=== PATIENT | male | born 2000 | race Caucasian/White ===

== ENCOUNTER → 2022-02-27 00:05 | Outpatient (CLI) | payer OTHER, SELFPAY ==
[2022-02-27 11:52] LABS: SARS-CoV-2 RNA PCR Negative
== END ==
PROVIDERS: PCP Family Medicine Adolescent Medicine
DX: R68.89 Other general symptoms and signs (principal); Z20.822 Contact with and (suspected) exposure to COVID-19
CPT/HCPCS: C9803; U0003; U0005

== ENCOUNTER → 2022-04-23 01:15 | Outpatient (CLI) | payer OTHER, SELFPAY ==
[2022-04-23 11:00] LABS: SARS-CoV-2 RNA PCR Negative
== END ==
DX: R68.89 Other general symptoms and signs (principal); Z20.822 Contact with and (suspected) exposure to COVID-19
CPT/HCPCS: C9803; U0003; U0005

== ENCOUNTER 2022-07-13 09:39 | Outpatient (CLI) | payer OTHER, SELFPAY ==
--- NOTE | ~2022-07-13 | XR_ITS ---
EXAMINATION: XR hip LT min 2V INDICATION: Left hip pain TECHNIQUE: Two views of the left hip are obtained. COMPARISON: 01/15/2015 FINDINGS: Bone alignment is normal. There is no fracture. The soft tissues are unremarkable. IMPRESSION: 1. No acute osseous abnormality. Reviewed, dictated and finalized at location B. 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
--- NOTE | ~2022-07-13 | XR_ITS ---
EXAMINATION: XR lumbar spine 2-3V DATE: 07/13/2022 10:00 INDICATION: Low back pain and right foot numbness TECHNIQUE: Anteroposterior and lateral views of the lumbar spine, and cone-down lateral view of the l umbosacral junction were obtained. COMPARISON: None. FINDINGS: There is no fracture, dislocation, or subluxation. The vertebral body heights, alignment, a nd intervertebral disc spaces are normal. The paravertebral soft tissues are unremarkable. IMPRESSION: 1. No acute osseous abnormality. 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
== END 2022-07-13 09:40 | disposition home or self-care (01) ==
PROVIDERS: PCP Family Medicine Adolescent Medicine; Visit Provider Family Medicine Adolescent Medicine
DX: R20.2 Paresthesia of skin (principal); M25.552 Pain in left hip
CPT/HCPCS: 72100; 73502

== ENCOUNTER 2023-07-05 16:21 | Emergency (ER) | payer OTHER, SELFPAY ==
--- NOTE | ~2023-07-05 | XR_ITS ---
XR hand RT min 3V, XR wrist RT min 3V 07/05/2023 16:55 INDICATION: Hand pain after recent injury PROCEDURE: 3 views right hand and 4 views right wrist COMPARISON: No prior studies for comparison. FINDINGS: Fracture, dislocation or subluxation is not identified. The soft tissues appear within norm al limits. No foreign bodies are identified. IMPRESSION: 1: NO ACUTE BONE OR JOINT ABNORMALITY IDENTIFIED. Reviewed, dictated and finalized at location A. IMPRESSION: 1: NO ACUTE BONE OR JOINT ABNORMALITY IDENTIFIED.
[2023-07-05 16:44] VITALS: BP 121/54; PULSE 98; RESP 16; TEMP 36.9; O2SAT 100
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
== END 2023-07-05 17:40 | disposition home or self-care (01) ==
PROVIDERS: Emergency Provider Registered Nurse; PCP Family Medicine Adolescent Medicine
DX: S63.501A Unspecified sprain of right wrist, initial encounter (principal); S66.911A Strain of unspecified muscle, fascia and tendon at wrist and hand level, right hand, initial encounter; X50.9XXA Other and unspecified overexertion or strenuous movements or postures, initial encounter; M79.641 Pain in right hand
CPT/HCPCS: 73110; 73130; 99213; G0463

== ENCOUNTER 2023-12-25 10:11 | Emergency (ER) | payer OTHER, SELFPAY ==
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
--- NOTE | ~2023-12-25 | XR_ITS ---
XR knee LT 3V 12/25/2023 10:55 Indication: Left knee pain Procedure: 3 views left knee Comparison: No prior studies for comparison. Findings: There is a depressed lateral tibial plateau fracture with involvement of the lateral tibial condyle. Large lipohemarthrosis. No other fracture. Impression: 1: Depressed lateral tibial plateau fracture with large lipohemarthrosis. Reviewed, dictated and finalized at location A. Impression: 1: Depressed lateral tibial plateau fracture with large lipohemarthrosis.
[2023-12-25 10:26] VITALS: BP 124/72; PULSE 92; RESP 16; O2SAT 99
[2023-12-25] MEDS: oxyCODONE/ACETAMINOPHEN (*CRX) 10-325 MG TABLET 1 TAB PO (11:22)
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
== END 2023-12-25 11:50 | disposition home or self-care (01) ==
PROVIDERS: Emergency Provider Preventive Medicine Aerospace Medicine; PCP Family Medicine Adolescent Medicine
DX: S82.142A Displaced bicondylar fracture of left tibia, initial encounter for closed fracture (principal); S99.912A Unspecified injury of left ankle, initial encounter; S79.912A Unspecified injury of left hip, initial encounter; V86.56XA Driver of dirt bike or motor/cross bike injured in nontraffic accident, initial encounter
CPT/HCPCS: 72170; 73562; 73610; 73630; 99284; A9270

== ENCOUNTER 2024-11-28 10:35 | Emergency (ER) | payer BC, SELFPAY ==
[2024-11-28 10:38] VITALS: BP 132/58; PULSE 74; RESP 16; TEMP 36.7; O2SAT 100
--- NOTE | 2024-11-28 10:51 | ECG_ITS ---
Test Date: 2024-11-28 11:19:34 Measurements Intervals [place] Rate: 52 P: 43 MN: 169 QRS: 91 QRSD: 84 T: 51 QT: 361 QTc: 336 Interpretive Statements SINUS BRADYCARDIA BORDERLINE RIGHT AXIS DEVIATION [QRS AXIS > 90] POSSIBLE RIGHT VENTRICULAR CONDUCTION DELAY [RSR (QR) IN V1/V2] No previous ECG available for comparison Electronically Signed On 11-28-2024 13:03:25 CDT by Lizeth Morley M.D.
[2024-11-28 11:01] VITALS: BP 112/67; BP 124/69; PULSE 63; PULSE 77
[2024-11-28 11:02] VITALS: BP 116/72; PULSE 76
[2024-11-28] MEDS: LACTATED RINGERS 1,000 ML 999 ML IV CONT (11:08)
--- NOTE | 2024-11-28 11:12 | ED_ITS ---
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 [place] lightheaded and dizzy with low bit of nauseousness. [place] like he was going to pass out but did not actually have a syncopal event. No chest pain or discomfort. No chest pressure. No neck pain or headache. No vision changes, abdominal pain or back pain. Was otherwise feeling well previous to this. Presents to the ER and states that he feels improved but not back to his current baseline. No history of heart issues or diabetes. Did not skip breakfast this morning. No injury or trauma. Related Data Allergies Allergy/AdvReac Type Severity Reaction Status Date / Time No Known Allergies Allergy Verified 11/28/24 10:36 Review of Systems 2 Review of Systems: As reviewed above in HPI [facility] Past Medical History Medical History No significant past medical history Surgical History Surgical History No significant past surgical history Social History Social History Smoking status: Never smoker Alcohol intake: never Living arrangements: with family Gender identity (if verbalized by the patient): Male Exam 2 Narrative: GENERAL: [Well-appearing, well-nourished, and in no acute distress.] HEAD: [Normocephalic, atraumatic.] EYES: [PERRLA and EOMI.] ENT: Nares clear, no rhinorrhea or epistaxis. Mucous membranes moist. NECK: Supple. CHEST: [Clear to auscultation. No respiratory distress.] HEART: [Regular rate and rhythm]. No murmur heard. [Normal peripheral pulses.] ABDOMEN: [Soft, nondistended], [nontender], [No rigidity or guarding] EXTREMITIES: Normal range of motion. [No edema.] SKIN: Warm, dry, no rash. NEURO: [No focal deficits]. Alert and oriented [x3.] PSYCH: [Normal mood and affect.] Course Vital Signs Vital signs: Vital Signs Temperature 36.7 C 11/28/24 10:38 Pulse Rate 74 11/28/24 10:38 Respiratory Rate 16 11/28/24 10:38 Blood Pressure 132/58 L 11/28/24 10:38 Pulse Oximetry 100 11/28/24 10:38 Oxygen Delivery Room Air 11/28/24 10:38 Temperature 36.7 C 11/28/24 10:38 Pulse Rate 76 11/28/24 11:02 Respiratory Rate 16 11/28/24 10:38 Blood Pressure 116/72 11/28/24 11:02 Pulse Oximetry 100 11/28/24 10:38 Oxygen Delivery Room Air 11/28/24 10:38 MDM - Syncope MDM Narrative Medical decision making narrative: 24-year-old otherwise healthy male presenting to the emergency department after a near syncopal event while at work. He felt a prodrome of nauseousness, lightheadedness with dizziness sensations that was short-lived. He did not actually have a full syncopal event. No chest pain shortness a breath. No nausea or vomiting. States he feels better presently without any intervention. Has normal vital signs, no tachycardia, fever or hypoxia. No significant blood pressure concerns. Strong symmetric pulses, clear breath sounds, no auscultated murmurs. He otherwise appears well. Likely vasovagal versus orthostatic syncope as he does have positive orthostatic vital signs here in the ED. Possible component of dehydration or less likely anemia or electrolyte disturbances. Low suspicion cardiac dysrhythmia or cardiac in origin. Laboratory studies were obtained including CBC, CMP. EKG obtained, he was given a lactated Ringer bolus and placed on surveillance system monitor and observed. Patient did have some positive orthostatic vitals and improved with fluids. His electrolytes are normal, normal renal and hepatic function panel. No leukocytosis or anemia. EKG is unremarkable for any signs of ectopy or arrhythmia. He is safe for discharge home at this time encouraged to follow-up with his regular doctor as needed and maintain oral hydration. Patient given return precautions and a work note. Medical Records Attestation: I reviewed the patient's medical records. Lab Data Attestation: I reviewed the patient's lab results. 11/28/24 11:09 11/28/24 11:09 Labs: Lab Results 11/28/24 Range/Units 11:09 WBC 5.8 (4.5-10.0) K/mm3 RBC 4.87 (4.6-6.20) M/mm3 Hgb 14.9 (14.0-18.0) g/dL Hct 42.5 (42.0-52.0) % MCV 87.3 (80-100) fl MCH 30.6 (26-34) pg MCHC 35.1 (32-36) g/dl RDW 11.9 (11.5-14.5) % Plt Count 186 (150-375) k/mm3 MPV 8.9 (7.4-10.4) fl Immature Gran % (Auto) 0.3 (0-0.5) % Neut % (Auto) 61.6 (45.5-73.1) % Lymph % (Auto) 28.0 (18.3-44.2) % Dillon % (Auto) 7.4 (2.6-8.5) % Eos % (Auto) 1.7 (0-4.4) % Baso % (Auto) 1.0 (0.2-1.2) % Lymph # (Auto) 1.63 (0.9-3.2) K/mm3 Dillon # (Auto) 0.4 (0.1-0.6) K/mm3 Eos # (Auto) 0.1 (0-0.3) K/mm3 Baso # (Auto) 0.1 (0.0-0.1) K/mm3 Abs Immat Gran (auto) 0.02 (0.00-0.031) K/mm3 Absolute Neuts (auto) 3.6 (1.3-6.7) K/mm3 Absolute Nucleated RBC 0.000 (0.0-0.012) K/mm3 Nucleated RBC % 0.0 (0.0-0.2) % Sodium 140 (137-145) mmol/L Potassium 4.1 (3.4-5.0) mmol/L Chloride 104 (98-107) mmol/L Carbon Dioxide 26 (22-30) mmol/L Anion Gap 10 (4-12) mmol/L BUN 14 (9-20) mg/dL Creatinine 0.93 (0.7-1.3) mg/dL Estim Creat Clear Calc 109 ml/min Estimated GFR > 60 (59 - ) Glucose 90 (65-110) mg/dL Calcium 9.2 (8.4-10.2) mg/dL Total Bilirubin 0.7 (0.2-1.3) mg/dL AST 38 (17-59) U/L ALT 42 (6-50) U/L Alkaline Phosphatase 66 (38-126) U/L Total Protein 8.0 (6.3-8.2) g/dL Albumin 4.7 (3.5-5.1) g/dL Discharge Plan Discharge Clinical Impression: Pre-syncope, Postural dizziness with presyncope Patient Disposition: Home, Self-Care Condition: Stable Instructions: Antibiotic Form, Near Syncope (ED) Additional Instructions: Your laboratory studies and workup here very reassuring, maintain good oral hydration. Return with any new or worsening concerns at any time. Patient Language: Pashto Prescriptions: No Action oxycodone-acetaminophen [Endocet] 5-325 mg tablet 1 tablet PO Q8H PRN (Reason: pain) Qty: 15 0RF ondansetron 8 mg tablet,disintegrating 8 mg PO Q8H PRN (Reason: nausea and vomiting) Qty: 12 0RF Follow-up/Referrals: Raheem Dos Santos MD [Primary Care Provider] - Stand Alone Forms: Work/School Release IP Time of Disposition: 12:21
[2024-11-28 11:14] LABS: Basophils Absolute Auto 0.1 K/mm3 (0.0-0.1); Eosinophils Absolute Auto 0.1 K/mm3 (0-0.3); Eosinophils Percent Auto 1.7 % (0-4.4); Hematocrit 42.5 % (42.0-52.0); Hemoglobin 14.9 g/dL (14.0-18.0); Immature Granulocyte Absolute 0.02 K/mm3 (0.00-0.031); Immature Granulocyte Percent A 0.3 % (0-0.5); Lymphocytes Absolute Auto 1.63 K/mm3 (0.9-3.2); Mean Corpuscular HGB Conc 35.1 g/dl (32-36); Mean Corpuscular Hemoglobin 30.6 pg (26-34); Mean Corpuscular Volume 87.3 fl (80-100); Mean Platelet Volume 8.9 fl (7.4-10.4); Monocytes Absolute Auto 0.4 K/mm3 (0.1-0.6); Monocytes Percent Auto 7.4 % (2.6-8.5); Neutrophils Absolute Auto 3.6 K/mm3 (1.3-6.7); Neutrophils Percent Auto 61.6 % (45.5-73.1); Platelet Count Result 186 k/mm3 (150-375); Red Blood Count 4.87 M/mm3 (4.6-6.20); Red Cell Distribution Width 11.9 % (11.5-14.5); White Blood Count 5.8 K/mm3 (4.5-10.0)
[2024-11-28 11:24] LABS: Alanine Aminotransferase 42 U/L (6-50); Albumin Level 4.7 g/dL (3.5-5.1); Alkaline Phosphatase 66 U/L (38-126); Anion Gap 10 mmol/L (4-12); Aspartate Amino Transferase 38 U/L (17-59); Bilirubin,Total 0.7 mg/dL (0.2-1.3); Blood Urea Nitrogen 14 mg/dL (9-20); Calcium 9.2 mg/dL (8.4-10.2); Carbon Dioxide 26 mmol/L (22-30); Chloride 104 mmol/L (98-107); Estimated CRCL calculation 109 ml/min; Estimated Glomerular Filt Rate > 60; Glucose 90 mg/dL (65-110); Potassium 4.1 mmol/L (3.4-5.0); Sodium 140 mmol/L (137-145)
--- OUTSIDE RECORDS SUMMARY | 2024-11-28 11:58 | XMS_ITS | Referral Summary ---
Author Organization [facility] Address [address] [place] [address] Care Team Providers Care Sprinkling System Irrigator Name Role Phone Raheem Dos Santos MD Primary Care Prov ider Allergies No known active allergies Medications HYDROcodone-acet aminophen (NORCO) 5-325 mg per tabletIndication s:Pain Take 1 tablet by mouth every 6 (six) hours as needed for pain 34 tablet 01/09/2024 Active acetaminophen (TYLENOL) 500 mg tablet Take 1 tablet (500 mg total) by mouth every 6 (six) hours as needed for pain Active ibuprofen (ADVIL,MOTRIN) 600 mg tablet Take 1 tablet (600 mg total) by mouth every 6 (six) hours as needed for pain Active Active Problems Problem Noted Date Diagnosed Date Closed fracture of left tibial plateau 4 Social History Tobacco Use Types Packs/Day Years Used Date Smoking Tobacco: Never Passive Smoke Exposure: Never Smokeless Tobacco: Never Tobacco Cessation:Counseling Given: No AUDIT-C Answer Date Recorded Q1: How often do you have a drink containing alcohol? Never 01/09/2024 Q2: How many drinks containi ng alcohol do you have on a typical day when you are drinking? Patient does not drink 4 Q3: How often do you have si x or more drinks on one occasion? Never 01/09/2024 Personal Safety Answer Date Recorded Have you ever been in or are you currently in a harmful physical or emotional relationship or is someone making you feel afraid or unsafe? 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 Gender Identity Not on file Sexual Orientation Not on file Last Filed Vital Signs Vital Sign Reading Time Taken Comments Blood Pressure 111/61 01/09/2024 10:50 AM CDT Pulse 62 01/09/2024 10:55 AM CDT Temperature 36.2 C (97.2 F) 01/09/2024 10:20 AM CDT Respiratory Rate 11 01/09/2024 10:55 AM CDT Oxygen Saturation 99% 01/09/2024 10:55 AM CDT Inhaled Oxygen Concentration - - Weight 72.6 kg (160 lb) 01/09/2024 6:26 AM CDT Height 182.9 cm (6') 01/09/2024 6:26 AM CDT Body Mass Index 21.7 01/09/2024 6:26 AM CDT Plan of Treatment Not on file Medical Devices Implanted Type Area Automatic Gluing Machine Operator Device Identifier Shelf Expiration Date Model / Serial / Lot [employer] Evos 70mm 4 Hole Partial Articular Left Proximal Lateral Plate [id number] - [id number] Implanted:Qty: 1 on 01/09/2024 by Haily Cevallos MD at [facility] Plate Left: Leg [employer]Or tho [id number] / / [employer] Evos 3.5mm 50mm Self Tap Cortex Screw Bone Sterile [id number] - [id number] Implanted:Qty: 1 on 01/09/2024 by Haily Cevallos MD at [facility] Screw Left: Leg [employer] tho [id number] / / [employer] Evos 3.5mm 36mm Self Tap Cortex Screw Bone Sterile [id number] - [id number] Implanted:Qty: 1 on 01/09/2024 by Haily Cevallos MD at [facility] Screw Left: Leg [employer] tho [id number] / / [employer] Evos 4.7mm 80mm Full Thread Screw Bone Sterile Osteopenia [id number] - [id number] Implanted:Qty: 1 on 01/09/2024 by Haily Cevallos MD at [facility] Screw Left: Leg [employer] tho [id number] / / [employer] Evos 3.5mm 80mm Self Tap Lock Screw Bone Sterile [id number] - [id number] Implanted:Qty: 2 on 01/09/2024 by Haily Cevallos MD at [facility] Screw Left: Leg [employer]Or tho [id number] / / [employer] Cubes Graft 15ml Bone Cancellous [id number] - [id number] - [id number] Implanted:Qty: 1 on 01/09/2024 by Haily Cevallos MD at [facility] Left: Leg [employer] 05/05/2028 [id number] / [id number] / [id number] Explanted Type Area Automatic Gluing Machine Operator Device Identifier Shelf Expiration Date Model / Serial / Lot [employer]/ Ortho Screw Bone Cortical St Non Locking Evos 3.5x30mm Ss [id number] - [id number] Explanted:Qty: 1 on 01/09/2024 at [facility] Screw Left: Leg [employer]Or tho [id number] / / Insurance [facility] CHOICE PLUS [facility] CHOICE PLUS Care Teams Sprinkling System Irrigator Relationship Specialty Start Date End Date Raheem Dos Santos MD [address] [place] [address] PCP - General Family Medicine 12/27/23
--- OUTSIDE RECORDS SUMMARY | 2024-11-28 11:58 | XMS_ITS | Clinical Summary ---
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 Gender Identity Not on file Sexual Orientation Not on file Obstetrics History Last Filed Vital Signs Vital Sign Reading [...] 01/09/2024 6:26 AM CDT Plan of Treatment Health Maintenance Due Date Last Done Comments Depression Screening 2002 Hepatitis C Screening 2002 DTaP/Tdap/Td Vaccine (1 - Tdap) 2013 Varicella Vaccines (1 of 2 - 13+ 2-dose series) 2015 HPV Vaccines (1 - Male 3-dos e series) 2017 Meningococcal B Vaccine (1 o f 2 - Standard) 2018 Hepatitis B Screening 02/02/2020 Regular Well Visit/Exam 18-64 02/02/2020 Covid-19 Vaccine (3 - 2023-2 5 season) 2024 12/28/2021, 11/03/2021 Influenza Vaccine (#1) 2024 07/01/2023 Pneumococcal vaccine <65 Aged Out No longer eligible based on patient's age to complete this topic Medical Devices Implanted Type Area Site Identification Specialist Device Identifier Shelf Expiration Date Model / Serial / Lot [employer] r[employer]o Evos 70mm 4 Hole Partial Articular Left Proximal Lateral Plate [id number] - [id number] Implanted:Qty: 1 on 01/09/2024 by Haily Cevallos MD at [facility] Plate Left: Leg [employer]/Or tho [id number] / / [employer] Evos 3.5mm 50mm Self Tap Cortex Screw Bone Sterile [id number] - [id number] Implanted:Qty: 1 on 01/09/2024 by Haily Cevallos MD at [facility] Screw Left: Leg [employer]/Or tho [id number] / / [employer] Evos 3.5mm 36mm Self Tap Cortex Screw Bone Sterile [id number] - [id number] Implanted:Qty: 1 on 01/09/2024 by Haily Cevallos MD at [facility] Screw Left: Leg [employer]Or tho [id number] / / [employer]o Evos 4.7mm 80mm Full Thread Screw Bone Sterile Osteopenia [id number] - [id number] Implanted:Qty: 1 on 01/09/2024 by Haily Cevallos MD at [facility] Screw Left: Leg [employer]Or tho [id number] / / [employer]o Evos 3.5mm 80mm Self Tap Lock Screw Bone Sterile [id number] - [id number] Implanted:Qty: 2 on 01/09/2024 by Haily Cevallos MD at [facility] Screw Left: Leg [employer]/Or tho [id number] / / Allosource Cubes Graft 15ml Bone Cancellous [id number] - [id number] Implanted:Qty: 1 on 01/09/2024 by Haily Cevallos MD at [facility] Left: Leg [employer] 05/05/2028 [id number] / [id number] / [id number] Explanted Type Area Site Identification Specialist Device Identifier Shelf Expiration Date Model / Serial / Lot [employer]/ Ortho Screw Bone Cortical St Non Locking Evos 3.5x30mm Ss [id number] - [id number] Explanted:Qty: 1 on 01/09/2024 at [facility] Screw Left: Leg [employer]Or tho [id number] / / Insurance [facility] CHOICE PLUS [facility] CHOICE PLUS Care Teams Associate Store Leader Relationship Specialty Start Date End Date Raheem Dos Santos MD [address] [place] [address] PCP - General Family Medicine 12/27/23
--- OUTSIDE RECORDS SUMMARY | 2024-11-28 12:46 | XMS_ITS | Referral Summary ---
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 Gender Identity Not on file Sexual Orientation [...] on file Medical Devices Implanted Type Area Wool Grower Device Identifier Shelf Expiration Date Model / Serial / Lot [employer] r[employer]o Evos 70mm 4 Hole Partial Articular Left Proximal Lateral Plate [id number] - [id number] Implanted:Qty: 1 on 01/09/2024 by Haily Cevallos MD at [facility] Plate Left: Leg [employer]Or tho [id number] / / [employer] r[employer]o Evos 3.5mm 50mm Self Tap Cortex Screw Bone Sterile [id number] - [id number] Implanted:Qty: 1 on 01/09/2024 by Haily Cevallos MD at [facility] Screw Left: Leg [employer]Or tho [id number] / / [employer] r[employer]o Evos 3.5mm 36mm Self Tap Cortex Screw Bone Sterile [id number] - [id number] Implanted:Qty: 1 on 01/09/2024 by Haily Cevallos MD at [facility] Screw Left: Leg [employer]Or tho [id number] / / [employer]o Evos 4.7mm 80mm Full Thread Screw Bone Sterile Osteopenia [id number] - [id number] Implanted:Qty: 1 on 01/09/2024 by Haily Cevallos MD at [facility] Screw Left: Leg [employer]Or tho [id number] / / [employer] r[employer]o Evos 3.5mm 80mm Self Tap Lock Screw Bone Sterile [id number] - [id number] Implanted:Qty: 2 on 01/09/2024 by Haily Cevallos MD at [facility] Screw Left: Leg [employer]Or tho [id number] / / [employer] Cubes Graft 15ml Bone Cancellous [id number] - [id number] - [id number] Implanted:Qty: 1 on 01/09/2024 by Haily Cevallos MD at [facility] Left: Leg [employer] 05/05/2028 [id number] / [id number] / [id number] Explanted Type Area Wool Grower Device Identifier Shelf Expiration Date Model / Serial / Lot [employer]/ Ortho Screw Bone Cortical St Non Locking Evos 3.5x30mm Ss [id number] - [id number] Explanted:Qty: 1 on 01/09/2024 at [facility] Screw Left: Leg [employer]Or tho [id number] / / Insurance [facility] CHOICE PLUS [facility] HMO/PPO Address: [facility] [id number] [place] [id number] [facility] CHOICE PLUS [facility] HMO/PPO Address: [address] [place], [place] [id number] Care Teams Comparator Operator Relationship Specialty Start Date End Date Raheem Dos Santos MD [address] [place] [address] PCP - General Family Medicine 12/27/23
--- OUTSIDE RECORDS SUMMARY | 2024-11-28 12:46 | XMS_ITS | Clinical Summary ---
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 Gender Identity Not on file Sexual Orientation [...] this topic Medical Devices Implanted Type Area Machine Tool Technology Instructor Device Identifier Shelf Expiration Date Model / Serial / Lot [employer] r[employer]o Evos 70mm 4 Hole Partial Articular Left Proximal Lateral Plate [id number] - [id number] Implanted:Qty: 1 on 01/09/2024 by Haily Cevallos MD at [facility] Plate Left: Leg [employer]Or tho [id number] / / [employer]o Evos 3.5mm 50mm Self Tap Cortex Screw Bone Sterile [id number] - [id number] Implanted:Qty: 1 on 01/09/2024 by Haily Cevallos MD at [facility] Screw Left: Leg [employer]Or tho [id number] / / [employer]o Evos 3.5mm 36mm Self Tap Cortex Screw Bone Sterile [id number] - [id number] Implanted:Qty: 1 on 01/09/2024 by Haily Cevallos MD at [facility] Screw Left: Leg [employer]Or tho [id number] / / [employer]o Evos 4.7mm 80mm Full Thread Screw Bone Sterile Osteopenia [id number] - [id number] Implanted:Qty: 1 on 01/09/2024 by Haily Cevallos MD at [facility] Screw Left: Leg [employer]Or tho [id number] / / [employer]o Evos 3.5mm 80mm Self Tap Lock Screw Bone Sterile [id number] - [id number] Implanted:Qty: 2 on 01/09/2024 by Haily Cevallos MD at [facility] Screw Left: Leg [employer]Or tho [id number] / / [employer] Cubes Graft 15ml Bone Cancellous [id number] - [id number] - [id number] Implanted:Qty: 1 on 01/09/2024 by Haily Cevallos MD at [facility] Left: Leg [employer] 05/05/2028 [id number] / [id number] / [id number] Explanted Type Area Machine Tool Technology Instructor Device Identifier Shelf Expiration Date Model / Serial / Lot [employer]/ Ortho Screw Bone Cortical St Non Locking Evos 3.5x30mm Ss [id number] - [id number] Explanted:Qty: 1 on 01/09/2024 at [facility] Screw Left: Leg [employer]Or tho [id number] / / Insurance [facility] CHOICE PLUS [facility] CHO[facility] PLUS Care Teams Grain Shipper Relationship Specialty Start Date End Date Raheem Dos Santos MD [address] [place] [address] PCP - General Family Medicine 12/27/23
== END 2024-11-28 12:28 | disposition home or self-care (01) ==
PROVIDERS: Emergency Provider Student in an Organized Health Care Education/Training Program; PCP Family Medicine Adolescent Medicine
DX: R55 Syncope and collapse (principal); R42 Dizziness and giddiness; R00.1 Bradycardia, unspecified; R94.31 Abnormal electrocardiogram [ECG] [EKG]
CPT/HCPCS: 36415; 80053; 85025; 93005; 96360; 99284; J7120